=== PATIENT | male | born 2000 ===

== ENCOUNTER 2025-03-30 03:52 | Emergency (ER) | payer MEDICAID, OTHER ==
[~2025-03-30] VITALS: Ht 172.7 cm; Wt 84.0 kg
--- NOTE | 2025-03-30 04:06 | ED.PDOC ---
Musculoskeletal HPI Comments 24 year old male presents to ER for pain management of right elbow pain. Patient states he was discharged by his orthopedic doctor at a hospital in [place] yesterday at 5:45 p.m. after having right elbow surgery and woke up at 1 am this morning with 10/10 right elbow pain and presents to ER today for pain management of his post operative pain. Notes he's been taking his prescribed "oxycodone" pain medications without relief. Patient presents to ER with right posterior long arm splint, right arm sling, and right arm pain pump in mild distress. Notes his f/u appointment with his orthopedics doctor is next month on April 14. Denies numbness/tingling, shortness of breath, chest pain or any further symptom s/complaints Time Seen by MD: 04:01 Reviewed Notes: Nurses Notes, Medications, Allergies Allergies: Coded Allergies: NO KNOWN ALLERGIES (Unverified , 03/30/25) Information Source: Patient Mode of Arrival: Wheelchair Past Medical History Past Medical History (Other): Right elbow fracture Surgical History (Other): Right elbow surgery- 03/29/25 Family History Family History: Unknown Social History Smoker: Non-Smoker Alcohol: Denies ETOH Use Drugs: Denies Drug Use Lives In: Home Constitutional: denies: chills, diaphoresis, fatigue, fever, malaise, sweats, weakness, others EENTM: denies: blurred vision, double vision, ear bleeding, ear discharge, ear drainage, ear pain, ear ringing, eye pain, eye redness, hearing loss, mouth pain, mouth swelling, nasal discharge, nose bleeding, nose congestion, nose pain, photophobia, tearing, throat pain, throat swelling, voice changes, others Respiratory: denies: cough, hemoptysis, orthopnea, SOB at rest, shortness of breath, SOB with excertion, stridor, wheezing, others Cardiovascular: denies: chest pain, dizzy spells, diaphoresis, Dyspnea on exertion, edema, irregular heart beat, left arm pain, lightheadedness, palpitations, PND, syncope, others Gastrointestinal: denies: abdomen distended, abdominal pain, blood streaked bowels, constipated, diarrhea, dysphagia, difficulty swallowing, hematemesis, melena, nausea, poor appetite, poor fluid intake, rectal bleeding, rectal pain, vomiting, others Genitourinary: denies: burning, dysuria, flank pain, frequency, hematuria, incontinence, penile discharge, penile sore, pain, testicle pain, testicle swelling, urgency, others Neurological: denies: dizziness, fainting, headache, left sided numbness, left sided weakness, numbness, paresthesia, pre-existing deficit, right sided numbness, right sided weakness, seizure, speech problems, tingling, tremors, weakness, others Musculoskeletal: reports: others (As stated in HPI) Integumetry: denies: bruises, change in color, change in hair/nails, dryness, laceration, lesions, lumps, rash, wounds, others Allergic/Immunocompromised: denies: Difficulty Healing, Frequent Infections, Hives, Itching, others Hematologic/Lymphatic: denies: anemia, blood clots, easy bleeding, easy bruising, swollen glands, others Endocrine: denies: excessive hunger, excessive sweating, excessive thirst, excessive urination, flushing, intolerance to cold, intolerance to heat, unexplained weight gain, unexplained weight loss, others Psychiatric: denies: anxiety, bipolar disorder, depression, hopeless, panic disorder, schizophrenia, sleepless, suicidal, others Physical Exam General Appearance: Mild Distress (Due to right elbow pain) HEENT: PERRL/EOMI Neck: Full Range of Motion, Non-Tender, Normal Respiratory: Chest Non-Tender, Lungs Clear, No Accessory Muscle Use, No Respiratory Distress, Normal Breath Sounds Cardiovascular: No Murmur, No Gallop, Regular Rate/Rhythm Breast Exam: Deferred Gastrointestinal: NOT DONE Genitalia: Deferred Pelvic: Deferred Rectal: Deferred Extremities: Normal capillary refill Musculoskeletal : Extremity Location: Elbow (TTP to right elbow noted. Patient has right arm posterior long arm splint and right arm sling applied. Right arm pain pump is also noted. Meter Readers Supervisor strength intact and equal bilaterally. Pulses intact) Neurologic: Alert, hand rigger II-XII nml as Tested, No Motor Deficits, No Sensory Deficits Cerebellar Function: Normal Reflexes: Normal Skin: Dry, Normal Color, Warm Peripheral Pulses: 2+ Radial (R), 2+ Radial (L), 2+ Brachial (R), 2+ Brachial (L) Lymphatic: No Adenopathy Was a procedure done? Was a procedure done?: No Sedation Sedation?: No Differential Diagnosis EXT Differential Diagnosis: Deep Vein Thrombosis, Compartment Syndrome, Dislocation, Laceration, Neurovascular injury X-Ray, Labs, Meds, VS Morphine 4 mg IM ordered Zofran 4 mg PO ordered Patient neurovascularly intact and reported improvement in symptoms prior to discharge Advised to continue pain medications as currently prescribed Advised on elevation and alternate ice on/off as needed for pain Advised to f/u with PCP and orthopedic surgeon in 1-2 days Patient verbalized understanding and agreeable with current plan of care Advised to return to ER immediately if symptoms worsen Time of 1ST Reevaluation: 03:44 Reevaluation 1ST: N/A Patient Education/Counseling: Diagnosis, Treatment, Prognosis, Need For Follow Up Family Education/Counseling: No Family Present Departure 1 Departure Time of Disposition: 04:02 Impression: Primary Impression: Postoperative pain of extremity Disposition: 01 HOME / SELF CARE / HOMELESS Condition: Stable Discharged With: Friend Critical Care Note Critical Care Time?: No Stability Stability form required: No Heart Score Heart Score: Heart Score Response (Comments) Value History N/A 0 EKG N/A 0 Age N/A 0 Risk Factors N/A 0 Troponin N/A 0 Total 0 DEVEN WAN March 30, 2025 04:06
[2025-03-30] MEDS ORDERED: MORPHINE SULFATE INJ 2 MG/ml SYRG IM ONE (04:15)
[2025-03-30] MEDS ORDERED: ONDANSETRON ODT 4 MG TAB PO ONE (04:15)
[2025-03-30 04:18] VITALS: BP 124/98; TEMP 97.9
[2025-03-30 04:19] VITALS: PULSE 90; RESP 20; O2SAT 98
== END 2025-03-30 04:54 | disposition home or self-care (01) ==
LOC: ER 03:52
DX: G89.18 Other acute postprocedural pain (principal); Z98.890 Other specified postprocedural states